=== PATIENT | female | born 1935 | race Caucasian/White ===

== ENCOUNTER 2020-10-04 14:43 | Inpatient (IN) | payer MEDICARE, OTHER ==
[2020-10-04 15:30] LABS: #Basophils 0.1 thou/uL (0.0-0.2); #Eosinphils 0.3 thou/uL (0.0-0.7); #Lymphocytes 1.8 thou/uL (1.20-3.40); #Monocytes 0.8 thou/uL (0.11-0.59); #Neutrophils 8.2 thou/uL (1.40-6.50); %Basophils 0.5 % (0.0-1.0); %Eosinophils 3.1 % (0.0-10.0); %Lymphocytes 15.9 % (21.0-51.0); %Monocytes 6.7 % (0.0-10.0); %Neutrophils 73.8 % (42.0-75.0); Hemoglobin 12.1 g/dL (12.0-16.0); Mean Corpuscular Hemoglobin 30.5 pg (27.0-31.0); Mean Corpuscular Volume 89.7 fL (78.0-98.0); Mean Platelet Volume 7.5 fL (7.4-10.4); Platelet Count 334 thou/uL (130-400); RBC Distribution Width 11.6 % (11.5-14.5); Red Blood Cell (RBC) Count 3.97 mill/uL (4.20-5.40); White Blood Cell (WBC) Count 11.1 thou/uL (4.8-10.8)
[2020-10-04 15:52] LABS: ALT (SGPT) Less than 7 U/L (8-55); AST (SGOT) 16 U/L (5-34); Albumin 3.8 g/dL (3.4-4.8); Alkaline Phosphatase 73 U/L (40-110); Anion Gap 13 mmol/L (10-20); BUN (Urea Nitrogen) 24 mg/dL (9.8-20.1); Bilirubin, Total 0.4 mg/dL (0.2-1.2); Calc. Creatinine Clearance 0 mL/min (70-130); Calcium 9.2 mg/dL (7.8-10.44); Carbon Dioxide 28 mmol/L (23-31); Chloride 103 mmol/L (98-107); Globulin 3.9 g/dL (2.4-3.5); Glucose 120 mg/dL (83-110); Protein, Total 7.7 g/dL (5.8-8.1); Sodium 140 mmol/L (136-145)
[2020-10-04] MEDS ORDERED: Cefepime 2 GM VIAL ONE (18:17)
[2020-10-04] MEDS ORDERED: VANCOMYCIN 2 GRAM/400 ML BAG 2 GM in Premix Bag 1 BAG IVPB ONE (19:30)
[2020-10-04] MEDS ORDERED: Calcium Carbonate 500 MG ChewTAB PO PRN (20:48)
[2020-10-04] MEDS ORDERED: Senokot S 8.6-50 MG TAB PO PRN (20:48)
[2020-10-04] MEDS ORDERED: Acetaminophen 325 MG TAB PO PRN (20:48)
[2020-10-04] MEDS ORDERED: Ondansetron ODT 4 MG TAB PO PRN (20:48)
[2020-10-04 22:32] VITALS: BMI 33.9
[2020-10-05] MEDS: Cefepime 2 GM in Sodium Chloride 0.9% 100 ML IVPB SCH ×2 (05:11→17:58)
[2020-10-05 05:16] LABS: #Basophils 0.1 thou/uL (0.0-0.2); #Eosinphils 0.4 thou/uL (0.0-0.7); #Lymphocytes 1.6 thou/uL (1.20-3.40); #Monocytes 1.1 thou/uL (0.11-0.59); #Neutrophils 7.9 thou/uL (1.40-6.50); %Basophils 0.7 % (0.0-1.0); %Eosinophils 3.4 % (0.0-10.0); %Lymphocytes 14.7 % (21.0-51.0); %Monocytes 9.6 % (0.0-10.0); %Neutrophils 71.6 % (42.0-75.0); Hemoglobin 11.4 g/dL (12.0-16.0); Mean Corpuscular HGB CONC 33.1 g/dL (32.0-36.0); Mean Corpuscular Hemoglobin 29.9 pg (27.0-31.0); Mean Corpuscular Volume 90.4 fL (78.0-98.0); Mean Platelet Volume 7.5 fL (7.4-10.4); Platelet Count 281 thou/uL (130-400); RBC Distribution Width 11.7 % (11.5-14.5); Red Blood Cell (RBC) Count 3.83 mill/uL (4.20-5.40); White Blood Cell (WBC) Count 11.1 thou/uL (4.8-10.8)
[2020-10-05 05:47] LABS: Anion Gap 13 mmol/L (10-20); BUN (Urea Nitrogen) 21 mg/dL (9.8-20.1); Calc. Creatinine Clearance 78 mL/min (70-130); Calcium 8.5 mg/dL (7.8-10.44); Carbon Dioxide 22 mmol/L (23-31); Chloride 108 mmol/L (98-107); Glucose 100 mg/dL (83-110); Potassium 3.9 mmol/L (3.5-5.1); Sodium 139 mmol/L (136-145)
[2020-10-05 07:19] LABS: SARS-CoV-2 PCR by NAA Not Detected (NotDetected)
[2020-10-05] MEDS: Saccharomyces boulardii 250 MG CAP PO SCH (08:10)
[2020-10-05] MEDS: Enoxaparin Sodium 40 MG/0.4 ML SYRINGE SC SCH (08:10)
[2020-10-05] MEDS ORDERED: Boostrix 0.5 ML (Tdap) VIAL IM ONE (09:00)
[2020-10-05] MEDS ORDERED: Vancomycin HCl 1.25 GM in Sodium Chloride 0.9% 250 ML 250 ML IVPB SCH (20:00)
[2020-10-05] MEDS: VANCOMYCIN 1.25 GM/250 ML BAG 1.25 GM in Premix Bag 1 BAG IVPB SCH (20:59)
[2020-10-05] MEDS: Losartan 25 MG TAB PO SCH (20:59)
[2020-10-05] MEDS: Atorvastatin Calcium 10 MG TAB PO SCH (20:59)
[2020-10-05] MEDS: Escitalopram Oxalate 10 mg Tablet PO SCH (20:59)
[2020-10-06] MEDS: Levothyroxine Sodium 75 MCG TAB PO SCH (05:48)
[2020-10-06] MEDS: Cefepime 2 GM in Sodium Chloride 0.9% 100 ML IVPB SCH (05:48)
[2020-10-06] MEDS: Clopidogrel Bisulfate 75 MG TAB PO SCH (08:24)
[2020-10-06] MEDS: Cholecalciferol 1,000 UNITS (25 MCG) TAB PO SCH (08:24)
[2020-10-06] MEDS: Losartan 25 MG TAB PO SCH ×2 (08:24→20:55)
[2020-10-06] MEDS: Aspirin Chewable 81 MG TAB PO SCH (08:24)
[2020-10-06] MEDS: Saccharomyces boulardii 250 MG CAP PO SCH (08:24)
[2020-10-06] MEDS: Enoxaparin Sodium 40 MG/0.4 ML SYRINGE SC SCH (08:24)
[2020-10-06] MEDS: Ubidecarenone 50 MG CAP PO SCH (08:24)
[2020-10-06] MEDS: Multivitamin W/ Minerals 1 TAB PO SCH (08:24)
[2020-10-06] MEDS: cefTRIAXone\\ROCEPHIN 2 GM in Sodium Chloride 0.9% 100 ML IVPB SCH (08:25)
[2020-10-06] MEDS ORDERED: Non-Formulary Item 1 EACH (Omeprazole [Omeprazole] 20 MG Capsule.Dr) PO SCH (09:00)
[2020-10-06 20:22] LABS: Vancomycin, Trough 9.8 ug/mL
[2020-10-06] MEDS: VANCOMYCIN 1.25 GM/250 ML BAG 1.25 GM in Premix Bag 1 BAG IVPB SCH ×3 (20:55→21:17)
[2020-10-06] MEDS: Atorvastatin Calcium 10 MG TAB PO SCH (20:55)
[2020-10-06] MEDS: Escitalopram Oxalate 10 mg Tablet PO SCH (20:56)
[2020-10-07] MEDS: Levothyroxine Sodium 75 MCG TAB PO SCH (05:30)
[2020-10-07] MEDS: cefTRIAXone\\ROCEPHIN 2 GM in Sodium Chloride 0.9% 100 ML IVPB SCH (08:21)
[2020-10-07] MEDS: Saccharomyces boulardii 250 MG CAP PO SCH (08:22)
[2020-10-07] MEDS: Enoxaparin Sodium 40 MG/0.4 ML SYRINGE SC SCH (08:22)
[2020-10-07] MEDS: Aspirin Chewable 81 MG TAB PO SCH (08:22)
[2020-10-07] MEDS: Ubidecarenone 50 MG CAP PO SCH (08:22)
[2020-10-07] MEDS: Losartan 25 MG TAB PO SCH (08:22)
[2020-10-07] MEDS: Cholecalciferol 1,000 UNITS (25 MCG) TAB PO SCH (08:22)
[2020-10-07] MEDS: Multivitamin W/ Minerals 1 TAB PO SCH (08:22)
[2020-10-07] MEDS: Clopidogrel Bisulfate 75 MG TAB PO SCH (08:22)
[2020-10-07 08:24] VITALS: BP 197/84; TEMP 98.1
[2020-10-07] MEDS: VANCOMYCIN 1.25 GM/250 ML BAG 1.25 GM in Premix Bag 1 BAG IVPB SCH (11:41)
== END 2020-10-07 12:30 | disposition home health service (06) | DRG 603 ==
LOC: ERS 14:43 → ONC 18:51 → OBSVTOIN 10-05 14:02
PROVIDERS: ADMIT Internal Medicine; ATTEND Internal Medicine
DX: L03.116 Cellulitis of left lower limb (principal); E89.0 Postprocedural hypothyroidism; K21.9 Gastro-esophageal reflux disease without esophagitis; N18.30 Chronic kidney disease, stage 3 unspecified; I12.9 Hypertensive chronic kidney disease with stage 1 through stage 4 chronic kidney disease, or unspecified chronic kidney disease; I87.8 Other specified disorders of veins; E66.9 Obesity, unspecified; F32.9 Major depressive disorder, single episode, unspecified; E05.90 Thyrotoxicosis, unspecified without thyrotoxic crisis or storm; Z20.822 Contact with and (suspected) exposure to COVID-19; Z86.73 Personal history of transient ischemic attack (TIA), and cerebral infarction without residual deficits; Z88.0 Allergy status to penicillin; Z90.49 Acquired absence of other specified parts of digestive tract; Z86.718 Personal history of other venous thrombosis and embolism; Z79.890 Hormone replacement therapy; Z79.899 Other long term (current) drug therapy; Z79.01 Long term (current) use of anticoagulants; Z79.82 Long term (current) use of aspirin; Z68.34 Body mass index [BMI] 34.0-34.9, adult
CPT/HCPCS: 0002A; 36415; 80048; 80053; 80202; 83605; 85025; 87040; 87070; 87077; 87186; 87205; 87635; 90715; 91300; 96365; 96366; 96368; 96372; 96376; G0378; J0692; J0696; J1650; J3370; J3490; J7030; U0003; U0005